=== PATIENT | male | born 1945 | race Caucasian/White ===

== ENCOUNTER 2017-02-03 14:20 | Emergency (ER) | payer MEDICARE, MEDICAID ==
[~2017-02-03] VITALS: Ht 167.6 cm; Wt 50.0 kg
[~2017-02-03 14:20] MED LIST: ALBU6.7H INH; ALBU8I INH; ASPI-157; DUONSOL2 NEB; PRED20 PO
[2017-02-03 14:23] VITALS: BP 179/89; PULSE 85; RESP 20; TEMP 97.7; O2SAT 99
--- NOTE | 2017-02-03 14:32 | PD ---
Physical Exam Time Seen by Provider: 14:30 Narrative 71yo M c/o that he can't pee x 5 days. Says he urinated about 2 minutes ago but is was very minimal and it rojas. Denies fever, vomiting. +abd pain. Patient seen in triage. VS reviewed. Awaiting bed placement.. Data Data Last Documented VS Vital Signs Date Time Temp Pulse Resp B/P Pulse Ox O2 Delivery O2 Flow Rate FiO2 02/03/17 14:23 97.7 85 20 179/89 99 Room Air MDM Supervised Visit with MARVIN: Alison Castillo Feb 03, 2017 14:32
--- NOTE | 2017-02-03 15:31 | PD ---
HPI . urinary retention for Chief Complaint: Complaint Time Seen by Provider: 15:31 Travel History International Travel<30 days: No Contact w/Intl Traveler<30days: No Traveled to known affect area: No History of Present Illness HPI 71 yr old male with no known medical history here with c/o urinary retention for the past 5 days. He says he has tried urinating but very little comes out. He denies any dysuria. He denies any fever or chills. PFSH Past Medical History Autoimmune Disease: No Blood Disorders: No Anxiety: No Depression: No Cancer: No Cardiovascular Problems: No Chemotherapy: No COPD: Yes Diabetes: No Diminished Hearing: No Endocrine: No Glaucoma: No Genitourinary: No Immune Disorder: No Musculoskeletal: No Neurologic: No Psychiatric: No Reproductive: No Respiratory: No Radiation Therapy: No Sickle Cell Disease: No Thyroid Disease: No Past Surgical History Abdominal Surgery: No AICD: No Arteriovenous Shunt: No Cardiac Surgery: No Ear Surgery: No Endocrine Surgery: No Eye Surgery: No Genitourinary Surgery: No Gynecologic Surgery: No Insulin Pump: No Joint Replacement: No Oral Surgery: No Thoracic Surgery: No Other Surgery: Yes Social History Alcohol Use: Yes (BEER 2-3 DAILY AT THE MOST) Tobacco Use: Yes (1 PACK DAILY) Substance Use: No Allergies-Medications (Allergen,Severity, Reaction): Coded Allergies: No Known Allergies (Verified , 12/04/14) Reported Meds & Prescriptions Reported Meds & Active Scripts Active Flomax (Tamsulosin HCl) 0.4 Mg Cap 0.4 Mg PO HS Deltasone (Prednisone) 20 Mg Tab 40 Mg PO DAILY 4 Days Proventil Hfa (Albuterol Sulfate) 6.7 Gm Aero 2 Puff INH Q4HR * SHAKE WELL BEFORE USE * Resp: Albuterol 2.5 Mg/Ipratropium 0.5 Mg (Albuterol/Ipratropium) 1 Amp Nebu 1 Amp NEB Q6 Ventolin Hfa (Albuterol Sulfate) 8 Gm Aero 2 Puff INH Q4 PRN * SHAKE WELL BEFORE USE * Reported [facility] [employer] 500-32.5 mg (Aspirin-Caffeine) 1 Tab Tab Review of Systems General / Constitutional: No: Fever Eyes: No: Visual changes HENT: No: Headaches Cardiovascular: No: Chest Pain or Discomfort Respiratory: No: Shortness of Breath Gastrointestinal: No: Abdominal Pain Genitourinary: Positive: Decreased Urinary Output, Hesitancy, No: Dysuria, Dribbling, Incontinence Musculoskeletal: No: Pain Skin: No Rash Neurologic: No: Weakness Psychiatric: No: Depression Endocrine: No: Polydipsia Hematologic/Lymphatic: No: Easy Bruising Physical Exam Narrative GENERAL: AAO x 3, no acute distress, thin appearing SKIN: Warm and dry. No visible rashes or bruising. HEAD: Normocephalic and atraumatic. EYES: No scleral icterus. No injection or drainage. ENT: No nasal drainage noted. Mucous membranes pink. Airway patent. NECK: Supple, trachea midline. No JVD. CARDIOVASCULAR: Regular rate and rhythm without murmurs, gallops, or rubs. RESPIRATORY: Breath sounds equal bilaterally. No accessory muscle use. No rhonchi or rales. GASTROINTESTINAL: Abdomen soft, tenderness throughout the entire abdomen EXTREMITIES: No cyanosis or edema. BACK: No obvious deformity. NEURO: CN II-12 intact, director traffic and planning strength normal b/l, UE and LE 5/5, no focal deficits PSYCH: AAO x 3, normal affect. Data Data Last Documented VS Vital Signs Date Time Temp Pulse Resp B/P Pulse Ox O2 Delivery O2 Flow Rate FiO2 02/03/17 17:24 76 18 127/64 97 Room Air 02/03/17 14:23 97.7 Orders Complete Blood Count With Diff (02/03/17 16:04) Comprehensive Metabolic Panel (02/03/17 16:04) Lipase (02/03/17 16:04) Prothrombin Time / Inr (Pt) (02/03/17 16:04) Act Partial Throm Time (Ptt) (02/03/17 16:04) Urinalysis - C+S If Indicated (02/03/17 16:04) Ct Abd/Pel W/O Iv Contrast (02/03/17 16:04) Iv Access Insert/Monitor (02/03/17 16:04) Ecg Monitoring (02/03/17 16:04) Oximetry (02/03/17 16:04) Sodium Chloride 0.9% Flush (Ns Flush) (02/03/17 16:15) NPO (02/03/17 16:04) Continue Monroe/Suprapubic Cath (02/03/17 16:41) Labs Laboratory Tests Test 02/03/17 02/03/17 16:48 16:49 White Blood Count 12.8 TH/MM3 Red Blood Count 5.16 MIL/MM3 Hemoglobin 16.2 GM/DL Hematocrit 46.7 % Mean Corpuscular Volume 90.4 FL Mean Corpuscular Hemoglobin 31.3 PG Mean Corpuscular Hemoglobin 34.6 % Concent Red Cell Distribution Width 13.0 % Platelet Count 284 TH/MM3 Mean Platelet Volume 9.4 FL Neutrophils (%) (Auto) 79.4 % Lymphocytes (%) (Auto) 13.0 % Monocytes (%) (Auto) 5.1 % Eosinophils (%) (Auto) 1.9 % Basophils (%) (Auto) 0.6 % Neutrophils # (Auto) 10.1 TH/MM3 Lymphocytes # (Auto) 1.7 TH/MM3 Monocytes # (Auto) 0.7 TH/MM3 Eosinophils # (Auto) 0.2 TH/MM3 Basophils # (Auto) 0.1 TH/MM3 CBC Comment DIFF FINAL Differential Comment Prothrombin Time 10.2 SEC Prothromb Time International 0.9 RATIO Ratio Activated Partial 26.9 SEC Thromboplast Time Sodium Level 135 MEQ/L Potassium Level 4.6 MEQ/L Chloride Level 98 MEQ/L Carbon Dioxide Level 29.6 MEQ/L Anion Gap 7 MEQ/L Blood Urea Nitrogen 8 MG/DL Creatinine 0.86 MG/DL Estimat Glomerular Filtration 88 ML/MIN Rate Random Glucose 92 MG/DL Calcium Level 9.3 MG/DL Total Bilirubin 0.4 MG/DL Aspartate Amino Transf 18 U/L (AST/SGOT) Alanine Aminotransferase 13 U/L (ALT/SGPT) Alkaline Phosphatase 77 U/L Total Protein 8.4 GM/DL Albumin 4.1 GM/DL Lipase 91 U/L Urine Color LIGHT-YELLOW Urine Turbidity CLEAR Urine pH 6.0 Urine Specific [place] 1.003 Urine Protein NEG mg/dL Urine Glucose (UA) NEG mg/dL Urine Ketones NEG mg/dL Urine Occult Blood NEG Urine Nitrite NEG Urine Bilirubin NEG Urine Urobilinogen LESS THAN 2.0 MG/DL Urine Leukocyte Esterase NEG Microscopic Urinalysis Comment CULT NOT INDICATED MDM Medical Decision Making Medical Screen Exam Complete: Yes Emergency Medical Condition: Yes Medical Record Reviewed: Yes Differential Diagnosis BPH, UTI, less likely appendicitis Narrative Course 71 yr old male here with urinary retention. He likely has an enlarged prostate. CT abdomen and pelvis as patient has tenderness throughout the entire abdomen. Labs also have been ordered. Last Impressions Abdomen/Pelvis CT 02/03/17 1604 Signed Impressions: Service Date/Time: Friday, February 03, 2017 16:26 - CONCLUSION: 1. Very distended urinary bladder which extends to the upper abdomen. Given the significantly large prostate gland there is likely some degree of bladder outlet obstruction. No hydronephrosis is present. 2. Nonacute findings include undermineralized bones and severe atherosclerotic disease. Michael العراقي MD Laboratory Tests Test 02/03/17 02/03/17 16:48 16:49 White Blood Count 12.8 TH/MM3 Red Blood Count 5.16 MIL/MM3 Hemoglobin 16.2 GM/DL Hematocrit 46.7 % Mean Corpuscular Volume 90.4 FL Mean Corpuscular Hemoglobin 31.3 PG Mean Corpuscular Hemoglobin 34.6 % Concent Red Cell Distribution Width 13.0 % Platelet Count 284 TH/MM3 Mean Platelet Volume 9.4 FL Neutrophils (%) (Auto) 79.4 % Lymphocytes (%) (Auto) 13.0 % Monocytes (%) (Auto) 5.1 % Eosinophils (%) (Auto) 1.9 % Basophils (%) (Auto) 0.6 % Neutrophils # (Auto) 10.1 TH/MM3 Lymphocytes # (Auto) 1.7 TH/MM3 Monocytes # (Auto) 0.7 TH/MM3 Eosinophils # (Auto) 0.2 TH/MM3 Basophils # (Auto) 0.1 TH/MM3 CBC Comment DIFF FINAL Differential Comment Prothrombin Time 10.2 SEC Prothromb Time International 0.9 RATIO Ratio Activated Partial 26.9 SEC Thromboplast Time Sodium Level 135 MEQ/L Potassium Level 4.6 MEQ/L Chloride Level 98 MEQ/L Carbon Dioxide Level 29.6 MEQ/L Anion Gap 7 MEQ/L Blood Urea Nitrogen 8 MG/DL Creatinine 0.86 MG/DL Estimat Glomerular Filtration 88 ML/MIN Rate Random Glucose 92 MG/DL Calcium Level 9.3 MG/DL Total Bilirubin 0.4 MG/DL Aspartate Amino Transf 18 U/L (AST/SGOT) Alanine Aminotransferase 13 U/L (ALT/SGPT) Alkaline Phosphatase 77 U/L Total Protein 8.4 GM/DL Albumin 4.1 GM/DL Lipase 91 U/L Urine Color LIGHT-YELLOW Urine Turbidity CLEAR Urine pH 6.0 Urine Specific [place] 1.003 Urine Protein NEG mg/dL Urine Glucose (UA) NEG mg/dL Urine Ketones NEG mg/dL Urine Occult Blood NEG Urine Nitrite NEG Urine Bilirubin NEG Urine Urobilinogen LESS THAN 2.0 MG/DL Urine Leukocyte Esterase NEG Microscopic Urinalysis Comment CULT NOT INDICATED Patient appears to have enlarged prostate causing his urinary retention. I've discussed this with him. I discussed with my attending Dr. Fortune, who recommends monroe and outpt f/u. We will discharge him home with a Monroe in place. He will need follow-up with a urologist. Recommended the urologist weight control engineer. Patient instructed to call for an appointment. Patient discharged with Flomax Patient verbalized understanding of instructions, questions were answered, and thanked me for their care. I advised them if their condition worsens, please return to the nearest emergency room for further care. Diagnosis Primary Impression: Urinary retention Additional Impression: BPH (benign prostatic hyperplasia) Qualified Code: N40.1 - Benign prostatic hyperplasia with urinary retention Referrals: Salvador Bone MD Patient Instructions: General Instructions Additional Instructions: Please follow-up with the urologist as we discussed. Please call for an appointment this week. Keep the Monroe catheter in place. If you have any issues with this, return to the nearest emergency department. Med/Other Pt SpecificInfo: Prescription(s) given Scripts Tamsulosin (Flomax)0.4 Mg Cap0.4 Mg PO HS #30 CAP Ref 0 Prov:Rinku Estevez MD 02/03/17 Disposition: 01 DISCHARGE HOME Condition: Stable Massiel Vallecillo Feb 03, 2017 15:31
[2017-02-03] MEDS ORDERED: SODIUM CHLORIDE 0.9% FLUSH 10 ML FLUSH IV FLUSH PRN (16:15)
[2017-02-03 17:18] LABS: AUTOMATED NEUTROPHIL # 10.1 TH/MM3 (1.8-7.7); BASOPHIL # 0.1 TH/MM3 (0-0.2); BASOPHIL % 0.6 % (0.0-2.0); EOSINOPHIL # 0.2 TH/MM3 (0-0.4); EOSINOPHIL % 1.9 % (0.0-4.0); HEMATOCRIT 46.7 % (39.0-51.0); HEMO FLAGS DIFF FINAL; LYMPHOCYTE # 1.7 TH/MM3 (1.0-4.8); MEAN CELL VOLUME 90.4 FL (80.0-100.0); MEAN CORPUSCULAR HEMOGLOBIN 31.3 PG (27.0-34.0); MEAN CORPUSCULAR HGB CONC 34.6 % (32.0-36.0); MONO % 5.1 % (0.0-8.0); NEUT % 79.4 % (16.0-70.0); PLATELET COUNT 284 TH/MM3 (150-450); RED BLOOD COUNT 5.16 MIL/MM3 (4.50-5.90); WHITE BLOOD COUNT 12.8 TH/MM3 (4.0-11.0)
--- NOTE | 2017-02-03 17:19 | RADRPT ---
EXAM DATE/TIME: 02/03/2017 16:26 [facility] COMPARISON: No previous studies available for comparison. INDICATIONS : Flank pain. ORAL CONTRAST: No oral contrast ingested. RADIATION DOSE: 10.29 CTDIvol (mGy) ; Patient motion MEDICAL HISTORY : None SURGICAL HISTORY : hip ENCOUNTER: Initial ACUITY: 1 day PAIN SCALE: 5/10 LOCATION: Bilateral flank TECHNIQUE: Volumetric scanning of the abdomen and pelvis was performed. Using automated exposure control and ad justment of the mA and/or kV according to patient size, radiation dose was kept as low as reasonably achievable to obtain optimal diagnostic quality images. DICOM format image data is available electro nically for review and comparison. FINDINGS: LOWER LUNGS: The visualized lower lungs are clear. There are emphysematous changes at the lung bases. LIVER: Homogeneous density without lesion. There is no dilation of the biliary tree. No calcified gallston es. SPLEEN: Normal size without lesion. PANCREAS: Within normal limits. KIDNEYS: Normal in size and shape. There is no mass, stone, or hydronephrosis. ADRENAL GLANDS: Within normal limits. VASCULAR: There is no aortic aneurysm. There is severe atherosclerotic disease. BOWEL/MESENTERY: The stomach, small bowel, and colon demonstrate no acute abnormality. There is no free intraperitone al air or fluid. ABDOMINAL WALL: Within normal limits. RETROPERITONEUM: There is no lymphadenopathy. BLADDER: Urinary bladder is very distended extending into the upper abdomen. No focal wall thickening, stone, or mass is visualized. REPRODUCTIVE: Prostate gland is significantly enlarged. There are likely bilateral hydroceles. INGUINAL: There is no lymphadenopathy or hernia. MUSCULOSKELETAL: The bones are undermineralized. No acute osseous abnormality is seen. 4 pins are present in the left femoral head and neck. CONCLUSION: 1. Very distended urinary bladder which extends to the upper abdomen. Given the significantly large p rostate gland there is likely some degree of bladder outlet obstruction. No hydronephrosis is present .2. Nonacute findings include undermineralized bones and severe atherosclerotic disease. Michael العراقي MD on February 03, 2017 at 17:14 Board Certified Radiologist. This report was verified electronically.
[2017-02-03 17:22] LABS: BLOOD, URINE NEG (NEG); GLUCOSE,URINE NEG (NEG); KETONE, URINE NEG (NEG); NITRITE,URINE NEG (NEG); URINE COLOR LIGHT-YELLOW (YELLW/STRAW)
[2017-02-03 17:23] LABS: COMMENT (UR) CULT NOT INDICATED; CULTURE IF INDICATED CULT NOT INDICATED
[2017-02-03 17:24] VITALS: BP 127/64; PULSE 76; RESP 18; O2SAT 97
[2017-02-03 17:29] LABS: APTT (PATIENT) 26.9 SEC (24.3-30.1); INTERNATIONAL NORMALIZED RATIO 0.9 RATIO; PROTHROMBIN TIME - PATIENT 10.2 SEC (9.8-11.6)
[2017-02-03 17:38] LABS: ALKALINE PHOSPHATASE 77 U/L (45-117); TOTAL BILIRUBIN ADULT 0.4 MG/DL (0.2-1.0)
[2017-02-03 17:41] LABS: ALT (GPT) 13 U/L (12-78); ANION GAP 7 MEQ/L (5-15); AST (GOT) 18 U/L (15-37); BICARBONATE 29.6 MEQ/L (21.0-32.0); BLOOD UREA NITROGEN 8 MG/DL (7-18); CHLORIDE 98 MEQ/L (98-107); GLOMERULAR FILTRATION RATE 88 ML/MIN (>89); SODIUM (NA) 135 MEQ/L (136-145)
[2017-02-03 17:45] LABS: POTASSIUM 4.6 MEQ/L (3.5-5.1)
[2017-02-03] MEDS ORDERED: TAMS5CAP PO (18:00)
== END 2017-02-03 19:28 | disposition home or self-care (01) ==
LOC: NEPD 14:20
DX: N40.1 Benign prostatic hyperplasia with lower urinary tract symptoms (principal); R33.8 Other retention of urine; R10.9 Unspecified abdominal pain; F17.200 Nicotine dependence, unspecified, uncomplicated
CPT/HCPCS: 51702; 74176; 80053; 81001; 83690; 85025; 85610; 85730

== ENCOUNTER 2018-05-11 09:51 | Inpatient (IN) ==
[2018-05-11] MEDS ORDERED: MethylPREDNISolone Sod Succinate Inj 125 MG/2 ML Vial IV.PUSH ONE (10:11)
--- NOTE | 2018-05-11 10:28 | ED ---
HPI General Chief Complaint: Respiratory Symptoms Stated Complaint: SOB complaint Time Seen by Provider: 05/11/18 10:02 Source: patient and old records reviewed Mode of arrival: EMS Limitations: no limitations History of Present Illness Old male COPD that lives alone presented with complaint of shortness of breath and productive cough for the past 2 days. States that he is got muscle aches and is getting short of breath with just a few steps. He lives alone has a albuterol inhaler and nebulizer at home and he did 5 treatments yesterday with no relief of his symptoms. MD Complaint: Reports shortness of breath and cough; Denies chest pain Onset (ago): day(s) (2) Context: Denies recent illness and medication noncompliance Severity: moderate Consistency/Duration: constant Relieving factors: nothing Exacerbating factors: lying flat, exertion, inspiration and talking Known history of: Reports COPD Associated symptoms: Reports pain with inspiration, cough, wheezing, sputum production and orthopnea; Denies chest pain, fever, lower extremity pain, polyuria, polydipsia, paresthesias, palpitations, diaphoresis, nausea/vomiting, syncope, abdominal pain, rash and sense of impending doom Related Data Home Medications Medication Instructions Recorded Confirmed albuterol sulfate 2 puff INHALATION Q4-6H PRN 05/11/18 05/11/18 albuterol sulfate 5 TIMES A DAY 05/11/18 Allergies Allergy/AdvReac Type Severity Reaction Status Date / Time No Known Allergies Allergy Verified 05/11/18 09:56 Review of Systems ROS: all other systems reviewed are negative Constitutional Reports fatigue, Reports malaise, Reports poor appetite, Reports weakness and Reports weight loss PMFSH Medical History Medical History COPD (chronic obstructive pulmonary disease) (Acute) Surgical History Surgical History H/O left knee surgery (Acute) Family History Family History Other Family history normal Social History Social History Substance History: Past History Second Hand Smoke Exposure: No Smoking Status: Former smoker Tobacco Type: Cigarettes How Often Do You Have a Drink Containing Alcohol: 4 or more times a week Recent Travel in [facility] within the Last 8 Weeks: No Recent Out of Country Travel within the Last 8 Weeks: No Immunization History Tetanus Immunization: <5 Years Exam Narrative Exam Narrative: GENERAL: Alert and oriented in no distress cachectic and mass associated with bitemporal wasting. Unkempt SKIN: Focused skin assessment warm/dry. HEAD: Atraumatic. Normocephalic. EYES: Pupils equal and round. No scleral icterus. No injection or drainage. ENT: No nasal bleeding or discharge. Mucous membranes pink and moist. NECK: Trachea midline. No JVD. CARDIOVASCULAR: Tachycardia with regular rhythm. No murmur appreciated. RESPIRATORY: Tachypnea without accessory muscle use. Expiratory wheezes.. Breath sounds equal bilaterally. GASTROINTESTINAL: Abdomen soft, non-tender, nondistended. Hepatic and splenic margins not palpable. MUSCULOSKELETAL: No obvious deformities. No clubbing. No cyanosis. No edema. NEUROLOGICAL: Awake and alert. No obvious cranial nerve deficits. Motor grossly within normal limits. Normal speech. PSYCHIATRIC: Appropriate mood and affect; insight and judgment normal. Course Initial Documented Vital Signs Temperature 98.2 F 05/11/18 09:53 Pulse Rate 116 H 05/11/18 09:53 Respiratory Rate 24 05/11/18 09:53 Blood Pressure 137/74 05/11/18 09:53 Pulse Oximetry 92 L 05/11/18 09:53 Last Documented Vital Signs Temperature 98.2 F 05/11/18 09:53 Pulse Rate 101 H 05/11/18 10:20 Respiratory Rate 25 H 05/11/18 10:20 Blood Pressure 136/75 05/11/18 10:14 Pulse Oximetry 95 05/11/18 13:52 Medical Decision Making MDM Narrative Medical decision making narrative: WBC of 12.9 without lactic acidosis. Breathing treatments were given chest x-ray suggestive of left lower lobe pneumonia. Started on Zithromax and Rocephin. Admitted for further evaluation treatment. Solu-Medrol was also given IV. Patient improved with breathing treatment not appearing septic alert and oriented. Medical Screen Exam Complete: Yes Emergency Medical Condition: Yes Medical Records Medical records reviewed: Yes I reviewed the patient's medical records. Lab Data Lab results reviewed: Yes I reviewed the patient's lab results. Result diagrams: 05/11/18 10:05 05/11/18 10:05 Lab Results 05/11/18 05/11/18 05/11/18 Range/Units 10:05 10:05 10:05 WBC 12.9 H (4.0-11.0) th/mm3 RBC 4.55 (4.50-5.90) mil/mm3 Hgb 14.9 (13.0-17.0) gm/dL Hct 42.2 (39.0-51.0) % MCV 92.6 (80.0-100.0) fL MCH 32.8 (27.0-34.0) pg MCHC 35.4 (32.0-36.0) % RDW 13.0 (11.6-17.2) % Plt Count 252 (150-450) th/mm3 MPV 9.2 (7.0-11.0) fL Neut % (Auto) 84.6 H (16.0-70.0) % Lymph % (Auto) 6.3 L (9.0-44.0) % [place] % (Auto) 8.8 H (0.0-8.0) % Eos % (Auto) 0.1 (0.0-4.0) % Baso % (Auto) 0.2 (0.0-2.0) % Neut # (Auto) 10.9 H (1.8-7.7) th/mm3 Lymph # (Auto) 0.8 L (1.0-4.8) th/mm3 [place] # (Auto) 1.1 H (0.0-0.9) th/mm3 Eos # (Auto) 0.0 (0.0-0.4) th/mm3 Baso # (Auto) 0.0 (0.0-0.2) th/mm3 WBC Differential . Differential Comment Auto diff final Sodium 133 L (136-145) meq/L Potassium 4.0 (3.5-5.1) meq/L Chloride 97 L (98-107) meq/L Carbon Dioxide 24.3 (21.0-32.0) meq/L Anion Gap 12 (5-15) meq/L BUN 22 H (7-18) mg/dL Creatinine 0.89 (0.60-1.30) mg/dL Estimated GFR 85 L (>89) mL/min Random Glucose 135 H (74-106) mg/dL Lactic Acid (0.4-2.0) mmol/L Calcium 8.2 L (8.5-10.1) mg/dL Magnesium 2.4 (1.5-2.5) mg/dL Total Bilirubin 1.0 (0.2-1.0) mg/dL AST 29 (15-37) U/L ALT 15 (12-78) U/L Alkaline Phosphatase 80 (45-117) U/L Total Creatine Kinase 93 (39-308) U/L Troponin I Less than 0.02 L (0.02-0.05) ng/mL B-Natriuretic Peptide (0-100) pg/mL Total Protein 7.7 (6.4-8.2) g/dL Albumin 2.6 L (3.4-5.0) g/dL 05/11/18 05/11/18 Range/Units 10:05 12:00 WBC (4.0-11.0) th/mm3 RBC (4.50-5.90) mil/mm3 Hgb (13.0-17.0) gm/dL Hct (39.0-51.0) % MCV (80.0-100.0) fL MCH (27.0-34.0) pg MCHC (32.0-36.0) % RDW (11.6-17.2) % Plt Count (150-450) th/mm3 MPV (7.0-11.0) fL Neut % (Auto) (16.0-70.0) % Lymph % (Auto) (9.0-44.0) % [place] % (Auto) (0.0-8.0) % Eos % (Auto) (0.0-4.0) % Baso % (Auto) (0.0-2.0) % Neut # (Auto) (1.8-7.7) th/mm3 Lymph # (Auto) (1.0-4.8) th/mm3 [place] # (Auto) (0.0-0.9) th/mm3 Eos # (Auto) (0.0-0.4) th/mm3 Baso # (Auto) (0.0-0.2) th/mm3 WBC Differential Differential Comment Sodium (136-145) meq/L Potassium (3.5-5.1) meq/L Chloride (98-107) meq/L Carbon Dioxide (21.0-32.0) meq/L Anion Gap (5-15) meq/L BUN (7-18) mg/dL Creatinine (0.60-1.30) mg/dL Estimated GFR (>89) mL/min Random Glucose (74-106) mg/dL Lactic Acid 1.5 (0.4-2.0) mmol/L Calcium (8.5-10.1) mg/dL Magnesium (1.5-2.5) mg/dL Total Bilirubin (0.2-1.0) mg/dL AST (15-37) U/L ALT (12-78) U/L Alkaline Phosphatase (45-117) U/L Total Creatine Kinase (39-308) U/L Troponin I (0.02-0.05) ng/mL B-Natriuretic Peptide 27 (0-100) pg/mL Total Protein (6.4-8.2) g/dL Albumin (3.4-5.0) g/dL Imaging Data Radiologist's impression: Chest CT 05/11/18 00:00 CONCLUSION: 1. Segmental and lobar consolidating airspace disease throughout the left lower lobe. 2. Advanced COPD with extensive emphysematous disease. 3. No evidence of suspicious mass or pleural effusion. 4. Pleural parenchymal scarring right apex. 5. Mild to moderate coronary artery calcification. Chest X-Ray 05/11/18 10:11 CONCLUSION: 1. Infiltrate within left lower lobe. 2. Tiny left pleural effusion. 3. Underlying emphysematous change and chronic interstitial change. Discharge Plan Discharge Disposition Patient Disposition: 30 Still Patient Discharge Condition Condition: Good Discharge Details Diagnosis: COPD exacerbation, Pneumonia Physicians Team ED Provider: Bhavin Angel Primary Care Provider: Primary Care Jeannine Turner Attending Provider: Annmarie Chris Discharge Interventions Interventions: ED Discharge Assessment Last Done: 05/11/18 14:16 Vital Signs Last Done: 05/11/18 10:14 Status ED Status: Left Department Discharge Information Discharge Date/Time: 05/11/18 14:17
[2018-05-11 10:39] LABS: Albumin 2.6 g/dL (3.4-5.0); Anion Gap 12 meq/L (5-15); Aspartate Aminotransferase 29 U/L (15-37); Baso % (Auto) 0.2 % (0.0-2.0); Blood Urea Nitrogen 22 mg/dL (7-18); Calcium 8.2 mg/dL (8.5-10.1); Carbon Dioxide 24.3 meq/L (21.0-32.0); Chloride 97 meq/L (98-107); Eos % (Auto) 0.1 % (0.0-4.0); Glomerular Filtration Rate 85 mL/min (>89); Glucose,Random 135 mg/dL (74-106); Hematocrit 42.2 % (39.0-51.0); Hemoglobin 14.9 gm/dL (13.0-17.0); Lymph # (Auto) 0.8 th/mm3 (1.0-4.8); Lymph % (Auto) 6.3 % (9.0-44.0); Mean Corpuscular HGB Conc 35.4 % (32.0-36.0); Mean Corpuscular Hemoglobin 32.8 pg (27.0-34.0); Mean Corpuscular Volume 92.6 fL (80.0-100.0); Mean Platelet Volume 9.2 fL (7.0-11.0); Mono # (Auto) 1.1 th/mm3 (0.0-0.9); Mono % (Auto) 8.8 % (0.0-8.0); Neut # (Auto) 10.9 th/mm3 (1.8-7.7); Neut % (Auto) 84.6 % (16.0-70.0); Platelet Count 252 th/mm3 (150-450); Red Blood Count 4.55 mil/mm3 (4.50-5.90); Sodium 133 meq/L (136-145); White Blood Count 12.9 th/mm3 (4.0-11.0)
[2018-05-11 10:41] LABS: Alanine Aminotransferase 15 U/L (12-78); Alkaline Phosphatase 80 U/L (45-117); Total Protein 7.7 g/dL (6.4-8.2)
[2018-05-11 11:24] LABS: Magnesium 2.4 mg/dL (1.5-2.5)
--- NOTE | 2018-05-11 11:41 | XR ---
EXAM DATE: 05/11/2018 11:33 AM EST AGE/SEX: 72 years / Male INDICATIONS: . Short of breath with wheezing, cough. CLINICAL DATA: This is the patient's initial encounter. Patient reports that signs and symptoms have been present for 2 days and indicates a pain score of 0/10. MEDICAL/SURGICAL HISTORY: Emphysema. Chronic obstructive pulmonary disease. None. COMPARISON: [facility] [place], CHEST SINGLE AP, 12/04/2014. . FINDINGS: PA and lateral views of the chest demonstrate hyperinflation. Coarse interstitial markings are seen t hroughout both lungs but more pronounced within the left lower lobe. Blunting of the left costophreni c angle. Patchy airspace consolidation scattered throughout the left lower lobe. Heart is normal in s ize. Bony structures are unremarkable. CONCLUSION: 1. Infiltrate within left lower lobe. 2. Tiny left pleural effusion. 3. Underlying emphysematous change and chronic interstitial change. Electronically signed by: Abdulkadir Edwards MD 05/11/2018 11:39 AM EST
[2018-05-11] MEDS ORDERED: Azithromycin Inj 500 MG in Sodium Chlor 0.9% Inj 250 ML IV.SIG ONE (11:52)
[2018-05-11] MEDS ORDERED: Sod Chloride 0.9% Inj 1,000 ML IV.SIG ONE (11:56)
[2018-05-11] MEDS ORDERED: Folic Acid 1 MG Tablet PO ONE (12:00)
[2018-05-11] MEDS ORDERED: Bisacodyl 10 MG Supp RECTAL PRN (13:14)
[2018-05-11] MEDS ORDERED: Acetaminophen 325 MG Tablet PO PRN (13:14)
--- NOTE | 2018-05-11 13:29 | P.HPIM ---
History of Present Illness Primary Care Physician: No Primary Care Physician History of Present Illness: 72 year old male with COPD presented to the ED for evaluation of shortness of breath and cough for the past two days. He reports a nonproductive cough with associated myalgias, chest pain, and abdominal pain from coughing so much. He has an albuterol inhaler and a nebulizer machine at home and states he regularly uses his albuterol at least five times a day and in the past two days it has been even more frequently. He states he feels like he can't get any air into his chest. He denies nausea, vomiting, diarrhea, headache, visual changes, rhinorrhea, ear pain, rash, or edema. He endorses a low appetite and states he has lost at least 15 lb in the last six months. He denies night sweats, fever, or chills. He doesn't follow with a PCP. He denies recent travel or sick contacts. He lives alone and states he manages just fine by himself. PMH: COPD Surgical Hx: L knee surgery, L hip surgery, L wrist surgery Family Hx: father lived to be in his 90s, patient unaware of any medical problems in the family Social Hx: lives by himself in an apartment, quit smoking 4-5 years ago, drinks about 3-4 beers daily, denies drug use - Diagnosis (1) COPD exacerbation (2) Pneumonia Review of Systems All other systems reviewed negative except as stated [facility] - History History Provided By: Patient - Medical History Medical History: Medical History (Last Reviewed 05/11/18 @ 13:50 by Annmarie Chris MD) COPD (chronic obstructive pulmonary disease) - Surgical History Surgical History: Surgical History (Last Updated 05/11/18 @ 13:50 by Annmarie Chris MD) H/O left knee surgery - Family History Family History: Family History (Last Updated 05/11/18 @ 13:51 by Annmarie Chris MD) Other Family history normal - Social History I have reviewed the patient's Social History: Yes - Tobacco History Second Hand Smoke Exposure: No Tobacco Use In Past 30 Days: No Smoking Status: Former smoker - Alcohol History How Often Do You Have a Drink Containing Alcohol: Monthly or less - Travel History Recent Travel in the [place] Within the Last 8 Weeks: No Recent Travel Out of the Country Within the Last 8 Weeks: No - Immunization History Tetanus Immunization: <5 Years Medications and Allergies Active Medications: Active Medications Acetaminophen (Tylenol) 650 mg PO Q4H PRN PRN Reason: Temp > 100.4 Al Hydroxide/Mg Hydroxide (Milk Of Magnesia Liq) 30 ml PO Q12H PRN PRN Reason: Mild Constipation Albuterol (Duoneb Neb (Kalen)) 1 ampul NEB Q4HR NEB KALEN Azithromycin (Zithromax) 500 mg PO DAILY KALEN Stop: 05/14/18 09:01 Bisacodyl (Dulcolax Supp) 10 mg RECTAL DAILY PRN PRN Reason: SEVERE CONSITIPATION Ceftriaxone Sodium 1,000 mg/ (Sodium Chloride) 100 mls @ 200 mls/hr IV.SIG Q24H KALEN Lactulose (Lactulose Liq) 30 ml PO DAILY PRN PRN Reason: SEVERE CONSITIPATION Ondansetron HCl (Zofran Inj) 4 mg IV.PUSH Q6H PRN PRN Reason: NAUSEA OR VOMITING Senna/Docusate Sodium (Daily-Colace) 1 tab PO BID KALEN Sennosides (Senokot) 17.2 mg PO Q12H PRN PRN Reason: Moderate Constipation Sodium Chloride (Ns Flush) 2 ml IV.FLUSH BID KALEN Sodium Chloride (Ns Flush) 2 ml IV.FLUSH PRN PRN PRN Reason: FLUSH AFTER USING IV ACCESS Allergies Allergy/AdvReac Type Severity Reaction Status Date / Time No Known Allergies Allergy Verified 05/11/18 09:56 Home Medications Medication Instructions Recorded Confirmed Type albuterol sulfate 05/11/18 05/11/18 History albuterol sulfate 2 puff INHALATION Q4-6H PRN 05/11/18 05/11/18 History Exam Vital signs: Vital Signs 05/11/18 09:53 05/11/18 10:14 05/11/18 10:15 Temperature 98.2 F Pulse Rate 116 H 109 H Respiratory Rate 24 18 Blood Pressure 137/74 136/75 Pulse Oximetry 92 L 95 95 05/11/18 10:20 Temperature Pulse Rate 101 H Respiratory Rate 25 H Blood Pressure Pulse Oximetry Intake & Output 05/10/18 05/11/18 05/11/18 18:59 06:59 18:59 Weight 52.163 kg Narrative: GENERAL: Elderly, thin, disheveled-appearing male resting in bed in [facility]. SKIN: Warm and dry. Few seborrheic keratoses. HEENT: AT/NC. Pupils equal and round. EOMI. No scleral icterus or conjunctival injection. MMM. NECK: Supple no tender LAD or JVD. HEART: Tachycardic with no appreciable murmurs. LUNGS: Pursed lip breathing. Diminished breath sounds throughout. Trace left basilar crackles. No wheezing. ABDOMEN: +BS, soft, NT, ND. EXTREMITIES: No LE edema. 2+ pedal pulses. NEURO: Awake and alert. Nonfocal. Results - Labs CBC & Chem 7: 05/11/18 10:05 05/11/18 10:05 Labs: Short CBC 05/11/18 Range/Units 10:05 WBC 12.9 H (4.0-11.0) th/mm3 Hgb 14.9 (13.0-17.0) gm/dL Hct 42.2 (39.0-51.0) % Plt Count 252 (150-450) th/mm3 BMP 05/11/18 10:05 Sodium 133 L Potassium 4.0 Chloride 97 L Carbon Dioxide 24.3 BUN 22 H Creatinine 0.89 Calcium 8.2 L Cardiac Enzymes 05/11/18 05/11/18 Range/Units 10:05 10:05 Total Creatine Kinase 93 (39-308) U/L Troponin I Less than 0.02 L (0.02-0.05) ng/mL Liver Function 05/11/18 Range/Units 10:05 Total Bilirubin 1.0 (0.2-1.0) mg/dL AST 29 (15-37) U/L ALT 15 (12-78) U/L Alkaline Phosphatase 80 (45-117) U/L Albumin 2.6 L (3.4-5.0) g/dL - Imaging Chest X-Ray 05/11/18 10:11 CONCLUSION: 1. Infiltrate within left lower lobe. 2. Tiny left pleural effusion. 3. Underlying emphysematous change and chronic interstitial change. Caprini VTE Risk Assessment Caprini VTE Risk Assessment: Moderate/High Risk (score >= 2) Caprini Risk Assessment Model: Point Value = 1 Point Value = 2 Point Value = 3 Point Value = 5 Age 41-60 Minor surgery BMI > 25 kg/m2 Swollen legs Varicose veins or History of unexplained or recurrent spontaneous Oral contraceptives or hormone replacement Sepsis (< 1 month) Serious lung disease, including pneumonia (< 1 month) Abnormal pulmonary function Acute myocardial infarction Congestive heart failure (< 1 month) History of inflammatory bowel disease Medical patient at bed rest Age 61-74 Arthroscopic surgery Major open surgery (> 45 min) Laparoscopic surgery (> 45 min) Malignancy Confined to bed (> 72 hours) Immobilizing plaster cast Central venous access Age >= 75 History of VTE Family history of VTE Factor V Leiden Prothrombin [id number] Lupus anticoagulant Anticardiolipin antibodies Elevated serum homocysteine Heparin-induced thrombocytopenia Other congenital or acquired thrombophilia Stroke (< 1 month) Elective arthroplasty Hip, pelvis, or leg fracture Acute spinal cord injury (< 1 month) Prophylaxis Regimen: Total Risk Factor Score Risk Level Prophylaxis Regimen 0-1 Low Early ambulation 2 Moderate Order ONE of the following: *Sequential Compression Device (SCD) *Heparin 5000 units SQ BID 3-4 Higher Order ONE of the following medications: *Heparin 5000 units SQ TID *Enoxaparin/Lovenox 40 mg SQ daily (WT < 150 kg, CrCl > 30 mL/min) *Enoxaparin/Lovenox 30 mg SQ daily (WT < 150 kg, CrCl > 10-29 mL/min) *Enoxaparin/Lovenox 30 mg SQ BID (WT < 150 kg, CrCl > 30 mL/min) AND/OR *Sequential Compression Device (SCD) 5 or more Highest Order ONE of the following medications: *Heparin 5000 units SQ TID (Preferred with Epidurals) *Enoxaparin/Lovenox 40 mg SQ daily (WT < 150 kg, CrCl > 30 mL/min) *Enoxaparin/Lovenox 30 mg SQ daily (WT < 150 kg, CrCl > 10-29 mL/min) *Enoxaparin/Lovenox 30 mg SQ BID (WT < 150 kg, CrCl > 30 mL/min) AND *Sequential Compression Device (SCD) Assessment and Plan - Assessment (1) COPD exacerbation Code(s): J44.1 - Chronic obstructive pulmonary disease with (acute) exacerbation Status: Acute (2) Pneumonia Code(s): J18.9 - Pneumonia, unspecified organism Status: Acute - Plan 72 year old male with COPD admitted for COPD exacerbation and left lower lobe PNA. 1. COPD exacerbation - Pt presenting with increased SOB and cough x 2 days - CXR showing hyperinflation and flattened diaphragms with patchy consolidation scattered throughout the left lobe, personally reviewed by myself - Influenza negative - Satting 95% on room air - DuoNeb Q4H - Albuterol nebs Q2H PRN - Solumedrol 40 mg IV Q12 - Start Symbicort (patient using home albuterol >5x/day, needs maintenance) - Mucinex BID - Supplemental O2 to maintain sats 90-92% 2. Pneumonia - WBC 12.9 with left shift - CXR as above - Received Azithromycin and Rocephin in the ED which will continue - Check sputum cultures - Check urine legionella and pneumococcal Ag 3. Protein calorie malnutrition, weight loss - BMI 18.6 and patient appears cachectic - Patient with 15 lb unintentional weight loss over last 6 months - Check CT chest to r/o malignancy given tobacco history - Albumin 2.6 - Ensure TID with meals DVT prophylaxis: Lovenox Code Status: FULL Discussed Condition With: Patient and Dr. Angel Discharge Planning: Anticipate D/C in 1-2 days if patient clinically improves
--- NOTE | 2018-05-11 14:36 | CT ---
EXAM DATE: 05/11/2018 2:25 PM EST AGE/SEX: 72 years / Male INDICATIONS: Pneumonia, short of breath for two days. CLINICAL DATA: This is the patient's initial encounter. Patient reports that signs and symptoms have been present for 2 days and indicates a pain score of 6/10. MEDICAL/SURGICAL HISTORY: Chronic obstructive pulmonary disease. None. RADIATION DOSE: 3.98 CTDI (mGy) COMPARISON: No prior exams available for comparison. TECHNIQUE: Multiple contiguous axial images were obtained through the chest without contrast. Image s were obtained in suspended respiration using multiple row detector helical technique. Using automa bambi exposure control and adjustment of the mA and/or kV according to patient size, radiation dose was kept as low as reasonably achievable to obtain optimal diagnostic quality images. DICOM format imag e data is available electronically for review and comparison. FINDINGS: Lungs: Segmental dense consolidating airspace disease is present throughout the left lower lobe. Mul tiple emphysematous cysts are seen throughout the consolidated lung. Line advanced emphysematous dise ase is evident especially in the upper lobes. Pleural parenchymal scarring is identified in the right apex. Mediastinum: There is good visualization of the great vessels of the middle mediastinum. No evidenc e of mediastinal or hilar adenopathy/mass. [id number] coronary artery calcification is noted. Pleurae: No evidence of focal thickening or pleural effusion. Axillae: Unremarkable. Bony Structures: Unremarkable. Miscellaneous: The examination was extended to include the upper abdomen, and both adrenal glands ar e normal in size and configuration. CONCLUSION: 1. Segmental and lobar consolidating airspace disease throughout the left lower lobe. 2. Advanced COPD with extensive emphysematous disease. 3. No evidence of suspicious mass or pleural effusion. 4. Pleural parenchymal scarring right apex. 5. Mild to moderate coronary artery calcification. Electronically signed by: Farrukh Estrella MD 05/11/2018 2:34 PM EST
[2018-05-11] MEDS: Enoxaparin Inj 30 MG/0.3 ML Syringe SQ SCH (16:38)
[2018-05-11] MEDS: Budesonide-Formoterol 160/4.5 MCG 6 GM Inhaler INH SCH (21:04)
[2018-05-11] MEDS: MethylPREDNISolone Sod Succinate Inj 40 MG/ML Vial IV.PUSH SCH (21:05)
[2018-05-11] MEDS: Senna/Docusate Sodium 8.6/50 MG Tablet PO SCH (21:06)
[2018-05-11] MEDS: guaiFENesin 600 MG ER Tablet PO SCH (21:07)
[2018-05-12] MEDS: MethylPREDNISolone Sod Succinate Inj 40 MG/ML Vial IV.PUSH SCH (08:51)
[2018-05-12] MEDS: guaiFENesin 600 MG ER Tablet PO SCH ×2 (08:51→20:36)
[2018-05-12] MEDS: Azithromycin 250 MG Tablet PO SCH (08:51)
[2018-05-12] MEDS: Senna/Docusate Sodium 8.6/50 MG Tablet PO SCH ×2 (08:51→20:36)
[2018-05-12] MEDS: Budesonide-Formoterol 160/4.5 MCG 6 GM Inhaler INH SCH ×2 (08:52→20:37)
[2018-05-12 09:35] LABS: Baso % (Auto) 0.3 % (0.0-2.0); Hematocrit 34.3 % (39.0-51.0); Hemoglobin 11.9 gm/dL (13.0-17.0); Lymph # (Auto) 0.5 th/mm3 (1.0-4.8); Lymph % (Auto) 7.7 % (9.0-44.0); Mean Corpuscular HGB Conc 34.7 % (32.0-36.0); Mean Corpuscular Hemoglobin 32.4 pg (27.0-34.0); Mean Corpuscular Volume 93.2 fL (80.0-100.0); Mean Platelet Volume 9.6 fL (7.0-11.0); Mono # (Auto) 0.3 th/mm3 (0.0-0.9); Mono % (Auto) 5.1 % (0.0-8.0); Neut # (Auto) 5.1 th/mm3 (1.8-7.7); Neut % (Auto) 86.9 % (16.0-70.0); Platelet Count 218 th/mm3 (150-450); Red Blood Count 3.68 mil/mm3 (4.50-5.90); Red Cell Distribution Width 13.2 % (11.6-17.2); White Blood Count 5.9 th/mm3 (4.0-11.0)
[2018-05-12 10:03] LABS: Anion Gap 11 meq/L (5-15); Blood Urea Nitrogen 15 mg/dL (7-18); Calcium 7.8 mg/dL (8.5-10.1); Carbon Dioxide 22.5 meq/L (21.0-32.0); Chloride 101 meq/L (98-107); Glomerular Filtration Rate Greater Than 89 mL/min (>89); Glucose,Random 148 mg/dL (74-106); Potassium 3.4 meq/L (3.5-5.1); Sodium 134 meq/L (136-145)
[2018-05-12] MEDS: Enoxaparin Inj 30 MG/0.3 ML Syringe SQ SCH (15:56)
--- NOTE | 2018-05-12 17:03 | P.PNIM ---
Subjective Interval history: reports some improvement in shortness of breath. still coughing up greenish sputum. chest pain with coughing. no fevers/chills. Physical Exam Vital signs: Last Vital Signs Temp 98.5 F 05/12/18 16:18 Pulse 86 05/12/18 16:18 Resp 18 05/12/18 16:18 BP 110/55 L 05/12/18 16:18 Pulse Ox 92 L 05/12/18 16:18 Intake & Output 05/10/18 05/11/18 05/12/18 05/13/18 06:59 06:59 06:59 06:59 Intake Total 1350 / 1350 100 / 100 Output Total 100 / 100 Balance 1250 / 1250 100 / 100 Weight 52.163 kg Narrative: GENERAL: Elderly, thin, disheveled-appearing male.NAD. SKIN: Warm and dry. Few seborrheic keratoses. HEENT: AT/NC. Pupils equal and round. EOMI. No scleral icterus or conjunctival injection. MMM. NECK: Supple no tender LAD or JVD. HEART: rrr, no murmurs/rubs. LUNGS:Diminished breath sounds throughout. Trace left basilar crackles. No wheezing. ABDOMEN: +BS, soft, NT, ND. EXTREMITIES: No LE edema. 2+ pedal pulses. NEURO: Awake and alert. Nonfocal. Results Labs CBC & Chem 7: 05/12/18 08:15 05/12/18 08:15 Labs: Microbiology 05/11/18 20:15 Sputum - Expectorated Sputum Gram Stain - Final 05/11/18 20:15 Sputum - Expectorated Sputum Sputum Culture - Preliminary Results Pending 05/11/18 12:00 Blood - Peripheral Aerobic Blood Culture - Preliminary No growth in 1 day 05/11/18 12:00 Blood - Peripheral Anaerobic Blood Culture - Preliminary No growth in 1 day 05/11/18 12:00 Blood - Peripheral Aerobic Blood Culture - Preliminary No growth in 1 day 05/11/18 12:00 Blood - Peripheral Anaerobic Blood Culture - Preliminary No growth in 1 day 05/11/18 16:26 Urine - Random Urine Streptococcus pneumoniae Antigen (M - Final Presumptive negative for streptococcus pneumoniae antigen, suggesting no current or recent infection. Infection due to Streptococcus pneumoniae cannot be ruled out since the antigen present in the sample may be below the detection limit of the test. 05/11/18 16:26 Urine - Random Urine Legionella Antigen - Final Presumptive negative for Legionella pneumophila serogroup 1 antigen in urine, suggesting no recent or recurrent infection. Infection due to Legionella cannot be ruled out since other serogroups and species may cause disease, antigen may not be present in urine in early infection, and the level of antigen present in the urine may be below the detection limit of the test. Assessment and Plan (1) COPD exacerbation: Code(s): J44.1 - Chronic obstructive pulmonary disease with (acute) exacerbation Status: Acute (2) Pneumonia: Code(s): J18.9 - Pneumonia, unspecified organism Status: Acute Plan 72 year old male with COPD admitted for COPD exacerbation and left lower lobe PNA. 1. COPD exacerbation with community acquired pneumonia- - Pt presented with increased SOB and cough x 2 days, still with symptoms but with some improvement. - CXR showing hyperinflation and flattened diaphragms with patchy consolidation scattered throughout the left lobe, personally reviewed by myself - Influenza negative, urine strep/legionella negative. Sputum gram stain--rare g +ve cocci, culture pending. blood culture negative to date. - DuoNeb Q4H - Albuterol nebs Q2H PRN - Switch to oral prednisone 40mg once daily x 5 days. - Symbicort started this admission (patient using home albuterol >5x/day, needs maintenance) - Mucinex BID -continue Azithromycin and Rocephin - Supplemental O2 to maintain sats 90-92% 3. Protein calorie malnutrition, weight loss - BMI 18.6 and patient appears cachectic - Patient with 15 lb unintentional weight loss over last 6 months -CT chest without e/o malignancy. can pursue outpatient work up including CT abdo/pelvis and colonoscopy. - Albumin 2.6 - Ensure TID with meals DVT prophylaxis: Lovenox Progress Note: Quality VTE Deep Vein Thrombosis/Pulmonary Embolism Present on Admission: No _ (1) Pneumonia Qualifiers: Pneumonia type: due to unspecified organism Aspiration pneumonia type: Laterality: left Lung location: lower lobe of lung Qualified Code(s): J18.1 - Lobar pneumonia, unspecified organism
[2018-05-12] MEDS: predniSONE 20 MG Tablet PO SCH (17:57)
[2018-05-13 01:10] VITALS: RESP 18
--- NOTE | 2018-05-13 08:37 | P.PNIM ---
Subjective Interval history: f/u; copd exacerbation in no acute distress. looks comfortable. sob is improving and has occasional cough. no fever. wants to go home today. Physical Exam Vital signs: Vital Signs 05/12/18 12:09 05/12/18 15:48 05/12/18 16:18 Temperature 98.6 F 98.5 F Pulse Rate 92 H 82 86 Respiratory Rate 20 16 18 Blood Pressure 119/59 L 110/55 L Pulse Oximetry 93 L 92 L 05/12/18 19:32 05/12/18 19:49 05/13/18 00:00 Temperature 97.9 F 97.3 F L Pulse Rate 84 88 75 Respiratory Rate 17 22 18 Blood Pressure 106/59 L 119/64 Pulse Oximetry 96 97 05/13/18 04:00 05/13/18 08:02 Temperature 97.5 F L Pulse Rate 84 78 Respiratory Rate 18 18 Blood Pressure 119/58 L Pulse Oximetry 94 L 94 L Intake & Output 05/12/18 05/13/18 05/13/18 18:59 06:59 18:59 Intake Total 100 / 100 800 / 800 Output Total 600 / 600 Balance 100 / 100 200 / 200 Weight 41.8 kg Intake: IV 100 / 100 Rocephin Inj 1,000 MG In NS Inj 100 / 100 100 ML @ 200 mls/hr IV.SIG Q24H MICHAEL Rx#:[id number] Oral 800 / 800 Output: Urine 600 / 600 Other: # Voids 4 Date of Last Bowel Movement 05/12/18 05/12/18 # Bowel Movements 1 - Constitutional no acute distress - Routine Respiratory Exam Present: diminished air movement (bilaterally.) - Routine Cardiovascular Exam Present: RRR - Routine Abdominal Exam Present: soft - Routine Extremities Exam Comments: no pedal edema. - Routine Neurological Exam Present: alert, oriented X3 Results - Labs CBC & Chem 7: 05/12/18 08:15 05/12/18 08:15 Laboratory Results - last 24 hr 05/12/18 05/12/18 08:15 08:15 WBC 5.9 D RBC 3.68 L Hgb 11.9 L D Hct 34.3 L MCV 93.2 MCH 32.4 MCHC 34.7 RDW 13.2 Plt Count 218 MPV 9.6 Neut % (Auto) 86.9 H Lymph % (Auto) 7.7 L Nobles % (Auto) 5.1 Eos % (Auto) 0.0 Baso % (Auto) 0.3 Neut # (Auto) 5.1 Lymph # (Auto) 0.5 L Nobles # (Auto) 0.3 Eos # (Auto) 0.0 Baso # (Auto) 0.0 WBC Differential . Differential Comment Auto diff final Sodium 134 L Potassium 3.4 L Chloride 101 Carbon Dioxide 22.5 Anion Gap 11 BUN 15 Creatinine 0.56 L Estimated GFR Greater than 89 Random Glucose 148 H Calcium 7.8 L Microbiology 05/11/18 20:15 Sputum - Expectorated Sputum Gram Stain - Final 05/11/18 20:15 Sputum - Expectorated Sputum Sputum Culture - Preliminary Results Pending 05/11/18 12:00 Blood - Peripheral Aerobic Blood Culture - Preliminary No growth in 1 day 05/11/18 12:00 Blood - Peripheral Anaerobic Blood Culture - Preliminary No growth in 1 day 05/11/18 12:00 Blood - Peripheral Aerobic Blood Culture - Preliminary No growth in 1 day 05/11/18 12:00 Blood - Peripheral Anaerobic Blood Culture - Preliminary No growth in 1 day 05/11/18 16:26 Urine - Random Urine Streptococcus pneumoniae Antigen (M - Final Presumptive negative for streptococcus pneumoniae antigen, suggesting no current or recent infection. Infection due to Streptococcus pneumoniae cannot be ruled out since the antigen present in the sample may be below the detection limit of the test. 05/11/18 16:26 Urine - Random Urine Legionella Antigen - Final Presumptive negative for Legionella pneumophila serogroup 1 antigen in urine, suggesting no recent or recurrent infection. Infection due to Legionella cannot be ruled out since other serogroups and species may cause disease, antigen may not be present in urine in early infection, and the level of antigen present in the urine may be below the detection limit of the test. Assessment and Plan - Assessment (1) COPD exacerbation Code(s): J44.1 - Chronic obstructive pulmonary disease with (acute) exacerbation Status: Acute (2) Pneumonia Code(s): J18.9 - Pneumonia, unspecified organism Status: Acute - Plan 1. COPD exacerbation with community acquired pneumonia-improved. - Pt presented with increased SOB and cough x 2 days, still with symptoms but with some improvement. - CXR showing hyperinflation and flattened diaphragms with patchy consolidation scattered throughout the left lobe, personally reviewed by myself - Influenza negative, urine strep/legionella negative. Sputum gram stain--rare g +ve cocci, culture with normal sj per my d/w microbiology today blood culture negative to date. - continue neb treatment - Switched to oral prednisone 40mg once daily x 5 days. - Symbicort started this admission (patient using home albuterol >5x/day, needs maintenance) - Mucinex BID -will switch to oral antibiotics - Supplemental O2 to maintain sats 90-92% -walk test today. 3. Protein calorie malnutrition, weight loss - BMI 18.6 and patient appears cachectic - Patient with 15 lb unintentional weight loss over last 6 months -CT chest without e/o malignancy. can pursue outpatient work up including CT abdo/pelvis and colonoscopy. - Albumin 2.6 - Ensure TID with meals DVT prophylaxis: Lovenox consult PT. Discharge Planning: dc home today after walk test and PT evaluation. see med list. d/w the patient. (2) Pneumonia Qualifiers: Pneumonia type: due to unspecified organism Laterality: left Lung location: lower lobe of lung Qualified Code(s): J18.1 - Lobar pneumonia, unspecified organism
--- NOTE | 2018-05-13 08:43 | P.DS ---
Date of admission: 05/11/18 16:10 Primary care physician: No Primary Care Physician Brief History from admission: 72 year old male with COPD presented to the ED for evaluation of shortness of breath and cough for the past two days. He reports a nonproductive cough with associated myalgias, chest pain, and abdominal pain from coughing so much. He has an albuterol inhaler and a nebulizer machine at home and states he regularly uses his albuterol at least five times a day and in the past two days it has been even more frequently. He states he feels like he can't get any air into his chest. He denies nausea, vomiting, diarrhea, headache, visual changes, rhinorrhea, ear pain, rash, or edema. He endorses a low appetite and states he has lost at least 15 lb in the last six months. He denies night sweats, fever, or chills. He doesn't follow with a PCP. He denies recent travel or sick contacts. He lives alone and states he manages just fine by himself. PMH: COPD Surgical Hx: L knee surgery, L hip surgery, L wrist surgery Family Hx: father lived to be in his 90s, patient unaware of any medical problems in the family Social Hx: lives by himself in an apartment, quit smoking 4-5 years ago, drinks about 3-4 beers daily, denies drug use DS: Diagnosis - Discharge Diagnosis (1) COPD exacerbation Status: Acute (2) Pneumonia Status: Acute DS: Medications - Discharge Medications Prescriptions: budesonide-formoterol [Symbicort] 2 puff INH BID #1 g levofloxacin [Levaquin] 500 mg PO DAILY 5 Days #5 tab prednisone 40 mg PO DAILY 4 Days tab DS: Summary Hospital Course: 1. COPD exacerbation with community acquired pneumonia-improved. - Pt presented with increased SOB and cough x 2 days, still with symptoms but with some improvement. - CXR showing hyperinflation and flattened diaphragms with patchy consolidation scattered throughout the left lobe, personally reviewed by myself - Influenza negative, urine strep/legionella negative. Sputum gram stain--rare g +ve cocci, culture with normal sj per my d/w microbiology today blood culture negative to date. - continue neb treatment - Switched to oral prednisone 40mg once daily x 5 days. - Symbicort started this admission (patient using home albuterol >5x/day, needs maintenance) - Mucinex BID -will switch to oral antibiotics - Supplemental O2 to maintain sats 90-92% -walk test . 3. Protein calorie malnutrition, weight loss - BMI 18.6 and patient appears cachectic - Patient with 15 lb unintentional weight loss over last 6 months -CT chest without e/o malignancy. can pursue outpatient work up including CT abdo/pelvis and colonoscopy. - Albumin 2.6 - Ensure TID with meals - Time Spent with Patient Total time spent providing and/or coordinating discharge services: Less than 30 minutes - Quality: VTE Deep Vein Thrombosis/Pulmonary Embolism Present on Admission: No Exam Vital signs: Vital Signs 05/12/18 12:09 05/12/18 15:48 05/12/18 16:18 Temperature 98.6 F 98.5 F Pulse Rate 92 H 82 86 Respiratory Rate 20 16 18 Blood Pressure 119/59 L 110/55 L Pulse Oximetry 93 L 92 L 05/12/18 19:32 05/12/18 19:49 05/13/18 00:00 Temperature 97.9 F 97.3 F L Pulse Rate 84 88 75 Respiratory Rate 17 22 18 Blood Pressure 106/59 L 119/64 Pulse Oximetry 96 97 05/13/18 04:00 05/13/18 08:02 Temperature 97.5 F L Pulse Rate 84 78 Respiratory Rate 18 18 Blood Pressure 119/58 L Pulse Oximetry 94 L 94 L Intake & Output 05/12/18 05/13/18 05/13/18 18:59 06:59 18:59 Intake Total 100 / 100 800 / 800 Output Total 600 / 600 Balance 100 / 100 200 / 200 Weight 41.8 kg Intake: IV 100 / 100 Rocephin Inj 1,000 MG In NS Inj 100 / 100 100 ML @ 200 mls/hr IV.SIG Q24H MICHAEL Rx#:[id number] Oral 800 / 800 Output: Urine 600 / 600 Other: # Voids 4 Date of Last Bowel Movement 05/12/18 05/12/18 # Bowel Movements 1 - Constitutional no acute distress - Routine Respiratory Exam Present: diminished air movement - Routine Cardiovascular Exam Present: RRR - Routine Abdominal Exam Present: soft - Routine Extremities Exam Comments: no pedal edema. - Routine Neurological Exam Present: alert, oriented X3 Results Procedures completed during hospitalization: none Labs on day of discharge: Labs from last 24 hours 05/12/18 05/12/18 08:15 08:15 WBC 5.9 D RBC 3.68 L Hgb 11.9 L D Hct 34.3 L MCV 93.2 MCH 32.4 MCHC 34.7 RDW 13.2 Plt Count 218 MPV 9.6 Neut % (Auto) 86.9 H Lymph % (Auto) 7.7 L Hendricks % (Auto) 5.1 Eos % (Auto) 0.0 Baso % (Auto) 0.3 Neut # (Auto) 5.1 Lymph # (Auto) 0.5 L Hendricks # (Auto) 0.3 Eos # (Auto) 0.0 Baso # (Auto) 0.0 WBC Differential . Differential Comment Auto diff final Sodium 134 L Potassium 3.4 L Chloride 101 Carbon Dioxide 22.5 Anion Gap 11 BUN 15 Creatinine 0.56 L Estimated GFR Greater than 89 Random Glucose 148 H Calcium 7.8 L Preliminary micro results at discharge 05/11/18 20:15 Sputum Culture - Preliminary Sputum - Expectorated Sputum Results Pending 05/11/18 12:00 Aerobic Blood Culture - Preliminary Blood - Peripheral No growth in 1 day Anaerobic Blood Culture - Preliminary No growth in 1 day 05/11/18 12:00 Aerobic Blood Culture - Preliminary Blood - Peripheral No growth in 1 day Anaerobic Blood Culture - Preliminary No growth in 1 day - Impressions ITS Impressions Chest CT 05/11/18 00:00 CONCLUSION: 1. Segmental and lobar consolidating airspace disease throughout the left lower lobe. 2. Advanced COPD with extensive emphysematous disease. 3. No evidence of suspicious mass or pleural effusion. 4. Pleural parenchymal scarring right apex. 5. Mild to moderate coronary artery calcification. Chest X-Ray 05/11/18 10:11 CONCLUSION: 1. Infiltrate within left lower lobe. 2. Tiny left pleural effusion. 3. Underlying emphysematous change and chronic interstitial change. Discharge Plan - Discharge Disposition Patient Disposition: 01 Discharge Home - Discharge Condition Condition: Good - Discharge Order Discharge Orders: Discharge Order (Routine); Ordered 05/13/18 Ordered By: Jerry Silva - Physicians Team Primary Care Provider: Primary Care Vazquezi,Jeannine Attending Provider: Jerry Silva Other Providers: [employer],Insurance
[2018-05-13 09:07] VITALS: BP 120/59; TEMP 97.3
[2018-05-13 09:34] VITALS: O2SAT 93
[2018-05-13] MEDS: Azithromycin 250 MG Tablet PO SCH (09:39)
[2018-05-13] MEDS: predniSONE 20 MG Tablet PO SCH (09:39)
[2018-05-13] MEDS: guaiFENesin 600 MG ER Tablet PO SCH (09:40)
[2018-05-13] MEDS: Senna/Docusate Sodium 8.6/50 MG Tablet PO SCH (09:40)
[2018-05-13] MEDS: Budesonide-Formoterol 160/4.5 MCG 6 GM Inhaler INH SCH (09:49)
[2018-05-13 11:38] VITALS: PULSE 86
== END 2018-05-13 12:35 | disposition home or self-care (01) ==
LOC: NEDA 09:51 → NEPC 09:51 → NEDA 14:17 → NEPGCP 14:32 → N04 05-12 22:45
PROVIDERS: ADMIT Internal Medicine; ATTEND Internal Medicine
DX: J18.9 Pneumonia, unspecified organism; L82.1 Other seborrheic keratosis; Z87.891 Personal history of nicotine dependence; J44.1 Chronic obstructive pulmonary disease with (acute) exacerbation; E46 Unspecified protein-calorie malnutrition; J44.0 Chronic obstructive pulmonary disease with (acute) lower respiratory infection